=== PATIENT | female | born 1980 | race Caucasian/White ===

== ENCOUNTER 2019-05-06 07:59 | Inpatient (IN) | payer MEDICAID ==
[~2019-05-06] VITALS: Ht 157.5 cm; Wt 90.7 kg
[2019-05-06] MEDS ORDERED: CYCL10 PO (08:07)
[2019-05-06 09:20] LABS: BASOPHILS % (AUTO) 0.5 % (0.0-2.0); EOSINOPHILS % (AUTO) 2.2 % (1.0-6.0); HEMATOCRIT 37.3 % (36-46); HEMOGLOBIN 12.3 g/dL (12.0-16.0); LYMPHOCYTES # (AUTO) 1.5 K/uL (1.0-4.8); LYMPHOCYTES % (AUTO) 21.8 % (22.0-44.0); MEAN CORPUSCULAR HEMOGLOBIN 31.9 pg (26.0-34.0); MEAN CORPUSCULAR HGB CONC 33.1 G/dL (31.0-37.0); MEAN CORPUSCULAR VOLUME 96 fL (80-100); MONOCYTES # (AUTO) 0.6 K/uL (0.1-1.0); MONOCYTES % (AUTO) 9.1 % (2.0-9.0); NEUTROPHILS # (AUTO) 4.6 K/uL (1.8-7.7); NEUTROPHILS % (AUTO) 66.4 % (40.0-70.0); PLATELET COUNT (AUTO) 260 K/uL (150-450); RED BLOOD CELL COUNT(AUTO) 3.87 MIL/uL (4.00-5.20); RED CELL DISTRIBUTION WIDTH 13.2 % (11.5-14.5)
[2019-05-06 09:33] LABS: ANION GAP 8 mmol/L (8-16); CALCIUM, TOTAL 8.3 mg/dL (8.8-10.5); CARBON DIOXIDE 29 mmol/L (22-29); CHLORIDE 103 mmol/L (98-107); CREATININE 0.83 mg/dL (0.60-1.30); GLOMERULAR FILTR. RATE CALC > 60 mL/min (>60); GLUCOSE,RANDOM 96 mg/dL (70-110); POTASSIUM 4.1 mmol/L (3.5-5.1); SODIUM SERUM 140 mmol/L (136-145); UREA NITROGEN, BLOOD 15 mg/dL (7-18)
[2019-05-06 09:40] LABS: ALANINE AMINOTRANSFERASE 25 U/L (12-78); ALBUMIN 3.5 g/dL (3.4-5.0); ALKALINE PHOSPHATASE 49 U/L (46-116); ASPARTATE AMINOTRANSFERASE 22 U/L (15-37); BILIRUBIN,TOTAL 0.8 mg/dL (0.1-1.0); TOTAL PROTEIN, SERUM 6.5 g/dL (6.4-8.2)
[2019-05-06] MEDS ORDERED: ZOLPIDEM TARTRATE 10 MG TABLET PO PRN (10:15)
[2019-05-06] MEDS ORDERED: QUEtiapine FUMARATE 100 MG TABLET PO PRN (10:15)
[2019-05-06] MEDS ORDERED: LORazepam 2 MG TABLET PO PRN (10:15)
[2019-05-06 10:28] LABS: AMPHET/METH SCREEN,URINE POSITIVE (NEGATIVE); BARBITURATE SCREEN, URINE NEGATIVE (NEGATIVE); BENZODIAZEPINES SCREEN,URINE NEGATIVE (NEGATIVE); CANNABINOID SCREEN,URINE NEGATIVE (NEGATIVE); COCAINE SCREEN,URINE NEGATIVE (NEGATIVE); METHADONE SCREEN, URINE NEGATIVE (NEGATIVE); OPIATE SCREEN,URINE NEGATIVE (NEGATIVE); PHENCYCLIDINE SCREEN,URINE NEGATIVE (NEGATIVE)
[2019-05-06 12:20] LABS: ACETAMINOPHEN < 2 mcg/mL (10-30)
[2019-05-06 19:58] VITALS: BP 118/90
[2019-05-07 04:53] VITALS: BP 107/71
[2019-05-07 08:26] LABS: CHOL/HDL RATIO 3.2 (3.9-5.7)
[2019-05-07 08:29] VITALS: BP 106/65
[2019-05-07 16:02] VITALS: BP 100/61
[2019-05-08 00:22] VITALS: BP 110/77
[2019-05-08] MEDS: SERTRALINE HCL 50 MG TABLET PO SCH (08:02)
[2019-05-08 08:46] VITALS: BP 112/64
[2019-05-08 16:10] VITALS: BP 102/58
[2019-05-08] MEDS ORDERED: ACETAMINOPHEN 325 MG TABLET PO PRN (16:15)
[2019-05-08] MEDS ORDERED: LOPERAMIDE HCL 2 MG CAPSULE PO PRN (16:15)
[2019-05-08] MEDS ORDERED: CloNIDine HCL 0.1 MG TABLET PO PRN (16:15)
[2019-05-08] MEDS ORDERED: ALBUTEROL SULFATE HFA 90 MCG/PUFF 8 GM INHALER IH PRN (16:15)
[2019-05-08] MEDS ORDERED: MAG HYDROX/AL HYDROX/SIMETH ES 30 ML SUSPENSION UDCUP PO PRN (16:15)
[2019-05-08] MEDS ORDERED: ONDANSETRON HCL 4 MG TABLET PO PRN (16:15)
[2019-05-08] MEDS ORDERED: PETROLATUM,WHITE 28 GM JELLY TP PRN (16:15)
[2019-05-08] MEDS ORDERED: NICOTINE 14 MG/24 HOUR PATCH TD PRN (16:15)
[2019-05-08] MEDS ORDERED: GuaiFENesin/D-METHORPHAN [SUGAR-FREE] 200-20MG/10 ML SYRUP UDCUP PO PRN (16:15)
[2019-05-08] MEDS ORDERED: IBUPROFEN 400 MG TABLET PO PRN (16:15)
[2019-05-08] MEDS ORDERED: DOCUSATE SODIUM 100 MG CAPSULE PO PRN (16:15)
[2019-05-08] MEDS ORDERED: MAGNESIUM HYDROXIDE SUSPENSION 30 ML UDCUP PO PRN (16:15)
[2019-05-08 17:01] VITALS: BP 103/65
[2019-05-09 00:44] VITALS: BP 117/69
[2019-05-09] MEDS: LACTOBACILLUS ACIDOPHILUS/BULGARICUS GRANULES PACKET PO SCH (08:41)
[2019-05-09] MEDS: SERTRALINE HCL 50 MG TABLET PO SCH (08:41)
[2019-05-09 08:49] VITALS: BP 105/64
[2019-05-09 16:24] VITALS: BP 104/77
[2019-05-10 07:01] VITALS: BP 112/67
[2019-05-10] MEDS: LACTOBACILLUS ACIDOPHILUS/BULGARICUS GRANULES PACKET PO SCH (08:31)
[2019-05-10] MEDS: SERTRALINE HCL 50 MG TABLET PO SCH (08:31)
[2019-05-10 09:00] VITALS: BP 102/62
[2019-05-10 16:19] VITALS: BP 110/68
[2019-05-11 00:36] VITALS: BP 116/66
[2019-05-11 08:26] VITALS: BP 110/63
[2019-05-11] MEDS: SERTRALINE HCL 50 MG TABLET PO SCH (08:35)
[2019-05-11] MEDS: LACTOBACILLUS ACIDOPHILUS/BULGARICUS GRANULES PACKET PO SCH (08:35)
[2019-05-11 16:15] VITALS: BP 101/63
[2019-05-12 06:47] VITALS: BP 114/62
[2019-05-12 08:11] VITALS: BP 107/60
[2019-05-12] MEDS: LACTOBACILLUS ACIDOPHILUS/BULGARICUS GRANULES PACKET PO SCH (08:16)
[2019-05-12] MEDS: SERTRALINE HCL 50 MG TABLET PO SCH (08:16)
[2019-05-12 16:07] VITALS: BP 106/62
[2019-05-12] MEDS ORDERED: SERT50TA12 PO (23:38)
[2019-05-12] MEDS ORDERED: ACID1GRA PO (23:39)
[2019-05-13 06:13] VITALS: BP 104/60
[2019-05-13] MEDS: SERTRALINE HCL 50 MG TABLET PO SCH (08:29)
== END 2019-05-13 10:10 | disposition home or self-care (01) | DRG 751 ==
LOC: EMS 08:00 → B2S 16:17
DX: F32.2 Major depressive disorder, single episode, severe without psychotic features (principal); F15.20 Other stimulant dependence, uncomplicated; R45.851 Suicidal ideations; I10 Essential (primary) hypertension; K59.00 Constipation, unspecified; Z56.0 Unemployment, unspecified; Z59.0 Homelessness; Z79.899 Other long term (current) drug therapy; Z87.891 Personal history of nicotine dependence
CPT/HCPCS: G0480; G0481